=== PATIENT | female | born 1945 | race Caucasian/White ===

== ENCOUNTER 2017-02-24 07:41 | Day surgery (SDC) | payer OTHER ==
--- NOTE | 2017-02-16 10:05 | HP ---
Admitting History and Physical - Primary Care Physician PCP: Odin Salmon - Admission Chief Complaint: Right breast cancer History of Present Illness: 71 year old nulliparous female with mammogram 12/2016 showinf left upper outer density which turned out to be a cyst on US but a right 9:00 1 cm spiculated density [id number] mm irregular mass 6 cm FN was found on UAS. US core bx 2016 showed invasive ductal carcinoma papillary type. MRI breast showed localized right breast cancer no adenopathy no contralateral disease. History Source: Patient Limitations to Obtaining History: No Limitations - Past Medical History Cardiovascular: Yes: HTN, Hyperlipdemia Gastrointestinal: Yes: Other (barretts esophagus thyoid nodule thrombocytopenia) - Past Surgical History Past Surgical History: Yes: Hysterectomy (total hystectomy ,endoscopy , endometriosis, teeth extraction and implants, ovarian cystectomy) - Smoking History Smoking history: Former smoker Have you smoked in the past 12 months: No - Alcohol/Substance Use Hx Alcohol Use: No Home Medications - Allergies Allergies/Adverse Reactions: Allergies Allergy/AdvReac Type Severity Reaction Status Date / Time lidocaine Allergy Verified 02/16/17 10:07 - Home Medications Home Medications (free text): losartan,metoprolol,crestor,valium,omeprazole, Family Disease History - Family Disease History Family Disease History: CA: Father (renal cancer), Mother (SD), Brother ( aneurysm) Physical Examination Constitutional: Yes: Well Nourished Breast(s): Yes: Other (fairly ptotic D cup breast with some bruising from recent right breast bruising and scarring right 9:00 breast, left breast is negative no adnopathy bilaterally) Problem List - Problems (1) Breast cancer, right breast Code(s): C50.911 - MALIGNANT NEOPLASM OF UNSP SITE OF RIGHT FEMALE BREAST Qualifiers: Breast location: overlapping sites of breast Patient sex: female Assessment/Plan Right breast wide excision mammogram needle localization, sentenel node biopsy , lymphoscintogram, possible axillary dissection , intraop radiation
[2017-02-17 10:57] VITALS: BMI 24.2
[2017-02-24] MEDS ORDERED: LIDOCAINE HCL 1%, 10 MG/ML (20ML VIAL) ONE (12:25)
[2017-02-24] MEDS ORDERED: ISOSULFAN BLUE 10 MG/ML VIAL SQ ONE (12:25)
[2017-02-24] MEDS ORDERED: GUM MASTIC/STORAX/MSAL/ALCOHOL 1 DRP DROPSBTL MC ONE (12:40)
[2017-02-24] MEDS ORDERED: MIDAZOLAM HCL 2 MG/2 ML SINGLE DOSE VIAL ONE (13:18)
[2017-02-24] MEDS ORDERED: ceFAZolin SODIUM 1 GM VIAL ONE (13:44)
[2017-02-24] MEDS ORDERED: PHENYLEPHRINE HCL 10 MG/1 ML SINGLE DOSE VIAL ONE (14:03)
[2017-02-24] MEDS ORDERED: ePHEDrine SULFATE 50 MG/1 ML AMPULE ONE (14:05)
[2017-02-24] MEDS ORDERED: PROPOFOL 20 ML ONE (14:08)
[2017-02-24] MEDS ORDERED: ONDANSETRON 4 MG/2 ML VIAL ONE ×2 (14:17→17:04)
[2017-02-24] MEDS ORDERED: DEXAMETHASONE SOD PHOSPHATE 4 MG/1 ML VIAL ONE (14:17)
[2017-02-24] MEDS ORDERED: LIDOCAINE HCL 1%, 10 MG/ML (50 mL VIAL) INF ONE (15:43)
[2017-02-24] MEDS ORDERED: BUPIVACAINE HCL/PF 0.25% (2.5MG/ML) 10 ML VIAL IJ ONE ×2 (15:43)
[2017-02-24] MEDS ORDERED: BUPIVACAINE HCL/PF 2.5 MG/ML - 30 ML VIAL IJ ONE (16:01)
[2017-02-24] MEDS ORDERED: ONDANSETRON 4 MG/2 ML VIAL IVPB PRN (16:27)
[2017-02-24] MEDS ORDERED: KETOROLAC TROMETHAMINE 30 MG/1 ML VIAL IVPUSH PRN (16:27)
[2017-02-24] MEDS ORDERED: DEXTROSE 5%-0.45% SALINE 1,000 ML IV SCH (16:30)
[2017-02-24] MEDS ORDERED: KETOROLAC TROMETHAMINE 30 MG/1 ML VIAL ONE (17:04)
[2017-02-24] MEDS ORDERED: oxyCODONE HCL 5 MG TABLET PO PRN ×2 (17:12)
[2017-02-24] MEDS ORDERED: LACTATED RINGERS SOLUTION 1,000 ML IV SCH (17:15)
[2017-02-24 18:51] VITALS: BP 132/78; PULSE 65; TEMP 98
--- NOTE | 2017-02-25 16:21 | OP ---
DATE OF OPERATION: 02/24/2017 PREOPERATIVE DIAGNOSIS: Right breast cancer, overlapping regions. POSTOPERATIVE DIAGNOSIS: Right breast cancer, overlapping regions. PROCEDURE: Right breast wide excision with mammographic needle localization and right axillary sentinel lymph node biopsy with intraoperative radiation using the INTRABEAM device. ANESTHESIA: General laryngeal mask airway anesthesia. PRIMARY SURGEON: Freddie Salmon MD RADAR REPAIRER: BRUNO Llamas RADIATION ONCOLOGIST: Omi Marquez MD COMPLICATIONS: None. INDICATIONS: Briefly, the patient is a 71-year-old, nulliparous, postmenopausal white female with no family history of breast cancer. She underwent mammography in December of 2016, showing a density in the right breast, 9 o'clock region, measuring about 9 mm on ultrasound, 6 cm from the nipple. Ultrasound-guided core biopsy in December of 2016, showed a moderately differentiated invasive duct cancer which was ER/WV positive, HER2/norah negative. MRI showed the lesion to be localized. The patient was advised on undergoing a wide excision with needle localization and understood the need for sentinel lymph node biopsy. She was seen by Radiation Oncology preoperatively and was felt to be a good candidate for the TARGIT-US trial with intraoperative radiation. She was brought in for the procedure on February 24, 2017. In the holding area, site verification was made, and informed consent was obtained. She had the needle localization and lymhoscintigraphy performed at [facility] prior to coming to [place]. DESCRIPTION OF PROCEDURE: The patient was then brought into the operating room, laid on the OR table in the supine position. Venodynes were placed on the lower extremities. She received a gram of Ancef prior to incision. Both breasts were sterilely prepped and draped in the usual fashion with the right arm prepped in the field. Next, 3 mL of Lymphazurin blue were injected intradermally and peritumorally around the needle localization site. Massage was instituted. An incision was made just below the hair-bearing area of the right axilla after she was properly anesthetized, and blue lymphatics were easily seen coursing to a blue hot lymph node. The radioactive tracer dye did not travel well, and there was no good hot spot using the Navigator probe. A second sentinel node was removed in the level I region of the right axilla and also sent as right axillary sentinel lymph node number 2, which was slightly blue. Hemostasis was achieved, and there was no other blue or hot nodes found. Hemostasis was achieved, and the wound was closed using interrupted 2-0 plain suture, then an interrupted 3-0 deep dermal Vicryl suture and a running 4-0 subcuticular Monocryl suture. At this point, the wide excision was undertaken around the needle localization site. A curvilinear incision was made on the lateral aspect of the right breast, and dissection was undertaken around the needle localization site, removing the breast tissue completely around the wire. Dissection was taken all the way down to the pectoralis major muscle. The specimen was oriented with a long lateral and short superior suture, and specimen radiograph showed removal of clip in question. Several margins were then taken on the superior, inferior, medial, lateral, deep, and anterior margins with sutures placed on the biopsy cavity sides. Each margin was sent separately to Pathology as specimen in formalin. At this point, intraoperative radiation was accomplished using the 3.5-cm INTRABEAM device, and this took about 20 minutes. After the radiation was accomplished, device was removed. Hemostasis was achieved, and the wound was copiously irrigated. The breast parenchyma was reapproximated using 2-0 plain suture. The skin was closed using interrupted 3-0 deep dermal Vicryl suture and a 4-0 running Biosyn suture. Mastisol and Steri-Strips were applied over the wound with a compression dressing placed over this. The patient tolerated the procedure well, without difficulty, and laryngeal mask airway tube was removed at the end of the case. She will be recovered in the postanesthesia care unit and discharged home the same day once discharge criteria are met. She is to follow up in the office in 1 week for a formal wound pathology check. All sponge and needle counts were correct at the end of the case, and estimated blood loss was about 20 mL. FREDDIE SALMON M.D. [id number]
--- NOTE | 2017-02-25 19:34 | OP ---
DATE OF OPERATION: DATE OF DICTATION: 02/24/2017 PREOPERATIVE DIAGNOSIS: Right breast cancer. POSTOPERATIVE DIAGNOSIS: Right breast cancer. PROCEDURE: Post lumpectomy intraoperative radiation therapy for right breast cancer. ATTENDING SURGEON: Odin Salmon M.D. MANAGER TECHNICAL TRAINING/RADIATION ONCOLOGIST: Omi Marquez M.D. ANESTHESIA: General. COMPLICATIONS: None. INDICATION: The patient is a 71-year-old woman with a T1b N0 M0 invasive ductal carcinoma of the right breast, ER/IN positive, HER2 negative. It is located at 9 o'clock aspect of the right breast. Measured about 8 mm in size. PROCEDURE: Dr. Salmon performed right lumpectomy and sentinel node biopsy, which he has dictated. After excision of additional margins, the lumpectomy cavity was sized with a 3.5 cm dose applicator. The applicator was placed in the operative cavity at the 9 o'clock position of the right breast. The surrounding breast tissue was cinched around the applicator with a Vicryl pursestring suture. The clinical and ultrasound simulation was performed to ensure that the applicator was located within the operative bed with close apposition of the surrounding breast tissue to the surface of the applicator. Saline soaked gauze was placed between the skin and the breast tissue to ensure adequate separation between the skin and the applicator. Ultrasound measurements confirmed the minimum separation of 3.5 cm at the 9 o' clock position of the aspect of the applicator. The applicator was pulled away from the chest wall to minimize dose to the underlying organs. Shielding material was placed over the breast to reduce scatter radiation. The patient received a dose of 20 Gy prescribed to 0 mm on the applicator surface with 50 KB x-rays using the Intrabeam system. Prior to treatment, the system was double checked by our physicist with appropriate chemistry quality control technician measurements. The time required for the treatment was 18 minutes and 59 seconds at a dose rate of 1.048 Gy per minute. When the treatment was completed, a survey of the patient in the room confirmed that the Intrabeam source was off. There were no complications or unexpected interruptions. Dr. Salmon removed the applicator from the patient and completed the surgery. Patient will be discharged to recovery room following the surgery. She will be followed up in 2 weeks for a wound healing assessment at which time final pathology will be reviewed and target followup as well. Chance [id number]
--- NOTE | 2017-02-27 14:59 | PATH ---
Surgical Pathology Report Patient Name: HOPE AGUSTIN [facility]. Rec. #: [id number] /Age/Gender: 1945 (Age: 71) / F Account: [id number] Location: [facility] Taken: 02/24/2017 Received: 02/24/2017 Reported: 02/27/2017 Physicians: Odin Salmon M.D. Specimen(s) Received A: RIGHT AXILLARY SENTINEL NODE #1 B: RIGHT AXILLARY SENTINEL NODE #2 C: RIGHT BREAST WIDE EXCISION D: RIGHT BREAST SUPERIOR MARGIN E: RIGHT BREAST MEDIAL MARGIN F: RIGHT BREAST INFERIOR MARGIN G: RIGHT BREAST LATERAL MARGIN H: RIGHT BREAST DEEP MARGIN I: RIGHT BREAST ANTERIOR MARGIN Clinical History Wide excision: Invasive carcinoma Final Diagnosis A. LYMPH NODE, RIGHT AXILLARY SENTINEL #1, EXCISION: ONE LYMPH NODE, NEGATIVE FOR METASTATIC CARCINOMA (0/1). B. LYMPH NODE, RIGHT AXILLARY SENTINEL #2, EXCISION: ONE LYMPH NODE, NEGATIVE FOR METASTATIC CARCINOMA (0/1). C. BREAST, RIGHT, WIDE EXCISION: INVASIVE DUCTAL CARCINOMA, MODERATELY DIFFERENTIATED WITH MICROPAPILLARY FEATURES (TUBULE SCORE: 3/3, NUCLEAR GRADE: 2/3, MITOTIC SCORE: 2/3; TOTAL COMPA SCORE: 7/9). INVASIVE CARCINOMA MEASURES 9 MM IN GREATEST DIMENSION, MICROSCOPICALLY. DUCTAL CARCINOMA IN SITU (DCIS), SOLID AND MICROPAPILLARY TYPE, INTERMEDIATE TO HIGH NUCLEAR GRADE IS PRESENT ADMIXED WITH INVASIVE CARCINOMA A MINOR COMPONENT. SURGICAL MARGINS ARE UNINVOLVED BY CARCINOMA; INVASIVE CARCINOMA IS AT 2 MM AND DCIS IS AT 5 MM FROM THE CLOSEST ANTERIOR MARGIN. SEE SPECIMENS D-I FOR FINAL MARGINS. NO LYMPHOVASCULAR INVASION IS IDENTIFIED. PATHOLOGIC STAGE (pTNM]:pT1b pN0. SEE ALSO INVASIVE CARCINOMA CASE SUMMARY BELOW. D. BREAST, RIGHT, SUPERIOR MARGIN, EXCISION: BENIGN BREAST TISSUE. E. BREAST, RIGHT, MEDIAL MARGIN, EXCISION: FOCAL DUCTAL CARCINOMA IN SITU (DCIS), PAPILLARY TYPE, INTERMEDIATE NUCLEAR GRADE. THE NEW MARGIN IS UNINVOLVED BY DCIS; DCIS IS AT 3 MM FROM THE CLOSEST NEW MARGIN. F. BREAST, RIGHT, INFERIOR MARGIN, EXCISION: BENIGN PREDOMINANTLY FATTY BREAST TISSUE. G. BREAST, RIGHT, LATERAL MARGIN, EXCISION: BENIGN PREDOMINANTLY FATTY BREAST TISSUE. H. BREAST, RIGHT, DEEP MARGIN, EXCISION: BENIGN FIBROADIPOSE TISSUE. I. BREAST, RIGHT, ANTERIOR MARGIN, EXCISION: BENIGN PREDOMINANTLY FATTY BREAST TISSUE. Comments Breast Invasive Carcinoma: Surgical Pathology Cancer Case Summary Based on AJCC/UICC TNM, 7th edition Procedure _X_ Excision with image-guided localization Lymph Node Sampling _X_ [place] lymph node(s) Specimen Laterality _X_ Right Tumor Size: Size of Largest Invasive Carcinoma: 9 mm Tumor Focality _X_ Single focus of invasive carcinoma Macroscopic and Microscopic Extent of Tumor Nipple _X_ Not applicable (excisions less than total mastectomy) Ductal Carcinoma In Situ (DCIS) _X_ DCIS is present _X_ as a minor component (< 25% of tumor) Histologic Type of Invasive Carcinoma : _X_ Invasive carcinoma of no special type (ductal, not otherwise specified) with micropapillary features Histologic Grade: (Compa Histologic Score) Tubular Differentiation _X_ Score 3 Nuclear Pleomorphism _X_ Score 2 Mitotic Rate _X_ Score 2 Overall Grade _X_ Grade 2: scores of 6 or 7 (moderately differentiated) Margins _X_ Margins uninvolved by invasive carcinoma Distance from closest margin: 2 mm from anterior margin in wide excision . Final anterior margin (I) is negative for carcinoma. _X_ Margins uninvolved by DCIS Distance from closest margin: 3 mm from final medial margin (E). Lymph-Vascular Invasion _X_ Not identified Lymph Nodes Total number of lymph nodes examined (sentinel and nonsentinel): 2 Number of sentinel lymph nodes examined: 2 Number of lymph nodes with macrometastases ( > 2 mm): 0 Number of lymph nodes with micrometastases (>0.2 mm to 2 mm and/or >200cells):0 Number of lymph nodes with isolated tumor cells (=0.2 mm and =200 cells): 0 Extranodal Extension _X_ Not applicable Pathologic Staging (pTNM) Primary Tumor (Invasive Carcinoma): pT1b Regional Lymph Nodes (pN): pN0(sn) Biomarker Studies Results of ER, PA, Her2 & Ki67 studies will be reported separately in an addendum. Electronically Signed Cherie Miller M.D. Addendum Reported: 03/03/2017 Addendum Diagnosis Results of ER and PA studies performed on block C1 at [facility] are as follows: ER (clone [id number] mouse monoclonal antibody by [employer]): > 90 % nuclear staining with strong intensity (Positive). PA (clone16 mouse monoclonal antibody by [employer]): >90 % nuclear staining with strong intensity (Positive). Results of Her2 (IHC) & Ki-67 studies performed on block C1 at [place], [place] ([id number]) are as follows: Her2 IHC (EP3 from [employer], formerly known as [id number], using [employer] Polymer Refine detection kit):0-1+ (Negative) Ki-67: 10-15% (Low proliferative index). Positive and negative controls (internal if applicable) show appropriate results. Formalin fixation and cold ischemic times are within current ASCO/CAP recommendations for ER, PA and Her2 testing. Cherie Miller M.D. Gross Description A. Received in formalin labeled "right axillary sentinel node #1," is a 1.1 x 0.9 x 0.5 cm zepeda, irregular lymph node with attached fat. The specimen is bisected and entirely submitted in one cassette. B. Received in formalin labeled "right axillary sentinel node #2," is a 2.0 x 1.6 x 0.6 cm zepeda, irregular lymph node with attached fat. The specimen is bisected and entirely submitted in 2 cassettes. C. Received in formalin, labeled "right breast wide excision," is a 5.3 x 5.0 x 2.1 cm. zepeda-yellow, irregular, portion of fibroadipose tissue with a needle localization wire present. There is a short suture marking the superior aspect and a long suture marking the lateral aspect, per the surgeon. There is no skin present. The specimen is inked as follows: superior and lateral blue; inferior green; medial yellow; anterior red; deep black. The specimen is serially sectioned from superior to inferior. Sectioning reveals a 1.1 x 1.0 x 0.7 cm zepeda, firm mass abutting the anterior margin. The mass is at 0.7 cm from the deep margin and 1.3 cm from the lateral margin. The remaining margins appear widely clear of the mass. Regulatory Attorney sections are submitted in 6 cassettes as follows: 1-2-one full-face section of mass each (each section includes anterior and deep margins); 3-lateral margin; 4-medial margin; 5-inferior margin; 6-superior margin. Time to formalin fixation: 26 minutes Total formalin fixation time: Approximately 27 hours. D. Received in formalin labeled "right breast superior margin," is a 3.1 x 2.5 x 0.9 cm irregular portion of fibroadipose tissue with a suture presumably marking the biopsy cavity side. The presumed new margin is inked green and the specimen is serially sectioned. The specimen is entirely and sequentially submitted in 4 cassettes. E. Received in formalin labeled "right breast medial margin," is a 2.7 x 1.5 x 0.9 cm irregular portion of fibroadipose tissue with a suture presumably marking the biopsy cavity side. The presumed new margin is inked green and the specimen is serially sectioned. The specimen is entirely submitted in 2 cassettes. F. Received in formalin labeled "right breast inferior margin," is a 2.8 x 2.3 x 0.6 cm irregular portion of fibroadipose tissue with a suture presumably marking the biopsy cavity side. The presumed new margin is inked green and the specimen is serially sectioned. The specimen is entirely submitted in 3 cassettes. G. Received in formalin labeled "right breast lateral margin," is a 2.7 x 2.3 x 1.3 cm irregular portion of fibroadipose tissue with a suture presumably marking the biopsy cavity side. The presumed new margin is inked green and the specimen is serially sectioned. The specimen is entirely submitted in 3 cassettes. H. Received in formalin labeled "right breast deep margin," is a 2.4 x 1.4 x 1.3 cm irregular portion of fibroadipose tissue with a suture presumably marking the biopsy cavity side. The presumed new margin is inked green and the specimen is serially sectioned. The specimen is entirely submitted in 3 cassettes. I. Received in formalin labeled "right breast anterior margin," is a 2.1 x 1.3 x 0.5 cm irregular portion of fibroadipose tissue with a suture presumably marking the biopsy cavity side. The presumed new margin is inked green and the specimen is serially sectioned. The specimen is entirely submitted in 2 cassettes. [id number]
== END 2017-02-24 18:51 | disposition home or self-care (01) ==
LOC: FASU 07:41
PROVIDERS: ATTEND Surgery Surgical Oncology
PROC: 0HBT0ZZ Excision of Right Breast, Open Approach (ICD-10-PCS; principal; 2017-02-24 13:27)
PROC: DMY17ZZ Contact Radiation of Right Breast (ICD-10-PCS; 2017-02-24 13:27)
DX: C50.811 Malignant neoplasm of overlapping sites of right female breast (principal); I10 Essential (primary) hypertension; E78.5 Hyperlipidemia, unspecified; Z87.891 Personal history of nicotine dependence; K22.70 Barrett's esophagus without dysplasia; E04.1 Nontoxic single thyroid nodule; D69.6 Thrombocytopenia, unspecified; Z90.710 Acquired absence of both cervix and uterus
CPT/HCPCS: 19281; 76641-TC-50; 77290; 77300; 77316; 77332; 77370-TC; 77424; 78195-TC; 88307-TC; 88342-TC; 94760; A9541; C9726